=== PATIENT | female | born 1955 | race Caucasian/White ===

== ENCOUNTER 2018-06-09 09:45 | Emergency (ER) | payer MEDICARE, MEDICAID ==
--- NOTE | 2018-06-09 10:03 | ED ---
Back Pain - HPI Summary HPI Summary: Patient is a 62-year-old female who presents emergency department for right low back pain that radiates into the right lower quadrant of abdomen times several days. Patient states she has history of back pain but has never had surgery or intervention. Patient believes she injured her back several days ago when she was lifting and heavy object. Patient denies leg numbness, tingling or weakness. She denies fever she denies bowel or bladder incontinence or retention. Patient states the pain last night was more in her lower abdomen and she was concerned for her appendix. Past medical history of hypertension, hyperlipidemia, GERD. Symptoms are moderate in severity. No current modifying factors. Pt. also wants to get her right ankle checked out. She states she twisted it about 2 weeks ago and continues to have pain and swelling. - History of Current Complaint Chief Complaint: EDBackInjuryPain Stated Complaint: BACK PAIN Time Seen by Provider: 06/09/18 09:56 Hx Obtained From: Patient Pain Intensity: 8 - Allergies/Home Medications Allergies/Adverse Reactions: Allergies Allergy/AdvReac Type Severity Reaction Status Date / Time Iodinated Contrast- Oral and Allergy Rash Verified 06/09/18 10:28 IV Dye meperidine Allergy Nausea Verified 06/09/18 10:26 Sulfa (Sulfonamide Allergy Rash Verified 06/09/18 10:26 Antibiotics) Home Medications: Home Medications Omeprazole 40 mg PO DAILY 06/09/18 [History Confirmed 06/09/18] Torsemide 20 mg PO DAILY PRN 06/09/18 [History Confirmed 06/09/18] PMH/Surg Hx/FS Hx/Imm Hx Previously Healthy: Yes Endocrine/Hematology History: Reports: Hx Thyroid Disease - thyroidectomy 2005, Hx Anemia Denies: Hx Diabetes Cardiovascular History: Reports: Hx Angina, Hx Hypercholesterolemia Denies: Hx Hypertension, Hx Pacemaker/ICD Respiratory History: Denies: Hx Asthma, Hx Chronic Obstructive Pulmonary Disease (COPD) GI History: Reports: Hx Gastroesophageal Reflux Disease, Hx Irritable Bowel, Hx Ulcer - gerd History: Denies: Hx Dialysis, Hx Renal Disease Musculoskeletal History: Reports: Hx Arthritis, Hx Fibromyalgia Sensory History: Reports: Hx Contacts or Glasses Denies: Hx Hearing Aid Opthamlomology History: Reports: Hx Contacts or Glasses Neurological History: Reports: Other Neuro Impairments/Disorders - nerve pain r/ t L4-L5 discs Psychiatric History: Denies: Hx Panic Disorder - Cancer History Hx Chemotherapy: No Hx Radiation Therapy: No - Surgical History Surgery Procedure, Year, and Place: thyroidectomy, tubal ligation Infectious Disease History: No Infectious Disease History: Denies: Hx Clostridium Difficile, Hx Hepatitis, Hx Human Immunodeficiency Virus (HIV), Hx of Known/Suspected MRSA, Hx Shingles, Hx Tuberculosis, Traveled Outside the [place] in Last 30 Days - Family History Known Family History: Positive: Non-Contributory - Social History Occupation: Disabled Lives: With Family Alcohol Use: None Substance Use Type: Reports: None Smoking Status (MU): Never Smoked Tobacco Review of Systems Negative: Fever, Chills Eyes: Negative ENT: Negative Cardiovascular: Negative Respiratory: Negative Positive: Abdominal Pain. Negative: Vomiting, Diarrhea, Nausea Positive: flank pain Positive: Other - left sided lower back pain Skin: Negative Neurological: Negative All Other Systems Reviewed And Are Negative: Yes Physical Exam Triage Information Reviewed: Yes Vital Signs On Initial Exam: Initial Vitals Temp Pulse Resp BP Pulse Ox 98.7 F 71 14 160/89 98 06/09/18 09:49 06/09/18 09:49 06/09/18 09:49 06/09/18 09:49 06/09/18 09:49 Vital Signs Reviewed: Yes Appearance: Positive: Well-Appearing - Pt. sitting up in bed in NAD. Skin: Positive: Warm, Dry Head/Face: Positive: Normal Head/Face Inspection Eyes: Positive: Normal, EOMI Neck: Positive: Supple Respiratory/Lung Sounds: Positive: Clear to Auscultation, Breath Sounds Present Cardiovascular: Positive: RRR Abdomen Description: Positive: Other: - Obese. Abd. is soft with tenderness to the RLQ and suprapubic region with mild guarding. No rebound tenderness or rigidity. Mild right CVA tenderness. Mild pain just over the right SI joint. Musculoskeletal: Positive: Other - 5/5 strength in bilateral LEs. Mild straight leg test on the right leg. Mild pain and swelling to right lateral malleolus. No proximal pain. Achilles tendon intact. Neurological: Positive: Normal, CN Intact II-III Psychiatric: Positive: Affect/Mood Appropriate Diagnostics - Vital Signs Vital Signs Temp Pulse Resp BP Pulse Ox 06/09/18 09:49 98.7 F 71 14 160/89 98 - Laboratory Result Diagrams: 06/09/18 10:32 12/10/18 10:32 Lab Statement: Any lab studies that have been ordered have been reviewed, and results considered in the medical decision making process. Back Pain Course/Dx - Course Course Of Treatment: Patient presenting right lower abdominal pain and right lower back pain. Chest afebrile stable vital signs. Given patient's tenderness on exam Will obtain labs and CAT scan. Differential includes appendicitis, urolithiasis, UTI. Patient with allergies to contrast dye, we'll scan with out. Labs are unremarkable for acute findings. Urinalysis negative for infection. IMPRESSION: 1. NO HYDRONEPHROSIS OR NEPHROLITHIASIS. 2. NORMAL APPENDIX. 3. THERE ARE MULTIPLE DIVERTICULA OF THE COLON IN THE REGION OF THE HEPATIC FLEXURE. THERE IS NO PERICOLONIC INFLAMMATORY CHANGE TO SUGGEST ACUTE DIVERTICULITIS. Results and incidental findings discussed with pt. She states toradol helped milldy but is still in pain. She has no neuro deficits or evidence of cauda equina snydrome. 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 A short rx for lortab and naproxen rx. Advised warm heat to back. To avoid heavy lifting. Close f.u with PCP and return to ER if sxs change or worsen - Diagnoses Differential Diagnosis/HQI/PQRI: Positive: Fracture, Herniated Disc, Renal Colic , Strain, Sprain Provider Diagnoses: Low back strain Discharge - Sign-Out/Discharge Documenting (check all that apply): Patient Departure - Discharge Plan Condition: Good Disposition: HOME Prescriptions: HYDROcodone/ACETAMIN 5-325 MG* [[place] 5-325 TAB*] 1 tab PO Q6H PRN #10 tab MDD 4 tablets PRN Reason: Pain Naproxen [Naproxen 500 mg tab] 500 mg PO BID #20 tablet Patient Education Materials: Low Back Strain (ED) Referrals: Brenda Lee MD [Primary Care Provider] - Additional Instructions: Schedule a follow up appointment with your PCP Take medication as directed Apply warm compresses Return to ER if symptoms change or worsen - Billing Disposition and Condition Condition: GOOD Disposition: Home
[2018-06-09] MEDS ORDERED: NS 0.9% 1000 ML* 1,000 ML IV ONE (10:21)
[2018-06-09] MEDS ORDERED: Ketorolac INJ* 30 MG/ML 1 ML VIAL IV PUSH ONE (10:22)
[2018-06-09 10:41] LABS: ABS Basophils 0.1 10^3/ul (0-0.2); ABS Eosinophils 0.2 10^3/ul (0-0.6); ABS Lymphocytes 1.8 10^3/ul (1.0-4.8); ABS Monocytes 0.5 10^3/ul (0-0.8); ABS Neutrophils 3.9 10^3/ul (1.5-7.7); ABS Nucleated RBC 0 10^3/ul; Eosinophil % 3.1 %; Hematocrit 41 % (35-47); Hemoglobin 13.9 g/dl (12.0-16.0); Lymphocyte % 27.9 %; Mean Corpuscular HGB Conc 34 g/dl (31-36); Mean Corpuscular Hemoglobin 28 pg (27-31); Mean Corpuscular Volume 83 fL (80-97); Mean Platelet Volume 7.7 fL (7.4-10.4); Nucleated Red Blood Cells % 0.1; Platelet Count 248 10^3/ul (150-450); Red Blood Count 4.94 10^6/ul (4.00-5.40); Red Cell Distribution Width 14 % (10.5-15); White Blood Count 6.5 10^3/ul (3.5-10.8)
[2018-06-09 10:43] LABS: Urine Appearance Clear; Urine Blood Negative (Negative); Urine Color Straw; Urine Ketones Negative (Negative); Urine Protein Negative (Negative); Urine Specific Gravity 1.006 (1.010-1.030); Urine Urobilinogen Negative (Negative)
[2018-06-09 11:03] LABS: EGFR Non-African American 59.4 (>60)
[2018-06-09 12:07] VITALS: BP 157/91
== END 2018-06-09 12:06 | disposition home or self-care (01) ==
LOC: ED 09:45
DX: S39.012A Strain of muscle, fascia and tendon of lower back, initial encounter (principal); E07.9 Disorder of thyroid, unspecified; E78.00 Pure hypercholesterolemia, unspecified; K21.9 Gastro-esophageal reflux disease without esophagitis; I10 Essential (primary) hypertension; E78.5 Hyperlipidemia, unspecified; X50.0XXA Overexertion from strenuous movement or load, initial encounter; Y92.9 Unspecified place or not applicable; Z88.2 Allergy status to sulfonamides; R10.31 Right lower quadrant pain
CPT/HCPCS: 36415; 74176; 80053; 81003; 85025; 86140; 96361; 96374; 99283; J1885

== ENCOUNTER 2019-05-22 08:00 | Day surgery (SDC) | payer MEDICARE, MEDICAID ==
[~2019-05-22 08:00] MED LIST: Buffered Lidocaine 1% SYRIN* 1 ML/SYRINGE INTRADERM ONE; Dexamethasone IV* 4 MG/ML 1 ML (4 MG) IV SLOW PU ONE; Famotidine IV* 10 MG/ML 2 ML (20 mg) IV ONE; Lactated Ringers 1000 ML Bag* 1,000 ML IV SCH
[2019-05-22] MEDS ORDERED: Buffered Lidocaine 1% SYRIN* 1 ML/SYRINGE INTRADERM ONE (08:44)
[2019-05-22] MEDS ORDERED: Famotidine IV* 10 MG/ML 2 ML (20 mg) ONE (08:44)
[2019-05-22] MEDS ORDERED: Dexamethasone IV* 4 MG/ML 1 ML (4 MG) ONE (08:44)
[2019-05-22] MEDS ORDERED: Midazolam* 1 MG/ML 5 ML VIAL (5 MG) ONE (10:04)
[2019-05-22] MEDS ORDERED: fentaNYL* 50 MCG/ML 2 ML VIAL (100 MCG VIAL) ONE (10:04)
[2019-05-22] MEDS ORDERED: Lidocaine 2% PF * 5 ML VIAL ONE (10:04)
[2019-05-22] MEDS ORDERED: Propofol* 10 MG/ML 20 ML BTL ONE (10:04)
[2019-05-22] MEDS ORDERED: Ketorolac INJ* 30 MG/ML 1 ML VIAL ONE (10:27)
[2019-05-22] MEDS ORDERED: Ondansetron INJ* 2 MG/ML VIAL ONE (10:36)
[2019-05-22 12:32] VITALS: BP 157/96
--- NOTE | 2019-05-22 19:03 | OP ---
OPERATIVE REPORT: DATE OF OPERATION: 05/22/19 DATE OF : 53 SURGEON: Heather Manzo MD FOOD BROKER: None. ANESTHESIA: General endotracheal. PRE-OP DIAGNOSIS: Endometrial polyp, postmenopausal bleeding. POST-OP DIAGNOSIS: Endometrial polyp, postmenopausal bleeding. OPERATIVE PROCEDURE: Dilation, curettage, polypectomy with MyoSure. ESTIMATED BLOOD LOSS: Minimal. FLUIDS: Crystalloid. FINDINGS: Large endometrial polyp attached at the fundus. Normal-appearing uterine cavity otherwise. COMPLICATIONS: None. COUNTS: Counts were all correct. DESCRIPTION OF PROCEDURE: After informed consent was signed, the patient was taken to the operating room where she was given general anesthesia that was found to be adequate. She was prepped and draped in the dorsal lithotomy position in the [facility]. A time-out was performed. The bladder was emptied of urine. Two speculums were placed into the vagina to expose the cervix and the anterior lip of the cervix was grasped with a single-tooth tenaculum. The cervix was dilated to a size 6 dilator large enough for the MyoSure device to be inserted. The MyoSure device was then assembled and the machine was turned on. It was primed and the camera was then inserted to the cervix into the uterine cavity. The polyp was noted protruding all way into the cervix. The MyoSure device was used to slowly remove the polyp, it was flush as possible with the fundus of the uterus. Both ostia were easily visualized and no further abnormalities were noted at the completion of the procedure. The MyoSure device was then removed. The tenaculum was removed from the cervix with good hemostasis. The speculum was removed from the vagina. The patient was awakened from anesthesia, placed back in the supine position, cleaned, and moved to the stretcher in stable condition. [id number]/[facility] #: [id number] [facility]
== END 2019-05-22 12:38 | disposition home or self-care (01) ==
LOC: OR 08:00
PROVIDERS: ATTEND Obstetrics & Gynecology
DX: N95.0 Postmenopausal bleeding (principal); N84.1 Polyp of cervix uteri; M19.90 Unspecified osteoarthritis, unspecified site; E03.9 Hypothyroidism, unspecified; F32.9 Major depressive disorder, single episode, unspecified; E78.5 Hyperlipidemia, unspecified
CPT/HCPCS: 88305; J1100; J1885; J2250; J2405; J2704; J3010